=== PATIENT | female | born 1990 | race Caucasian/White ===

== ENCOUNTER 2017-07-19 21:10 | Emergency (ER) | payer SELFPAY ==
[~2017-07-19] VITALS: Ht 167.6 cm; Wt 45.5 kg
[~2017-07-19 21:10] MED LIST: METO5SOL2 PO
[2017-07-19 21:11] VITALS: BP 140/67; PULSE 104; RESP 16; TEMP 99.7; O2SAT 99
[2017-07-19 22:17] LABS: AMORPHOUS SEDIMENT, URINE RARE; BACTERIA, URINE FEW /hpf; BILIRUBIN, URINE NEG (NEG); BLOOD, URINE MOD (NEG); GLUCOSE,URINE NEG (NEG); KETONE, URINE NEG (NEG); NITRITE,URINE NEG (NEG); SQUAMOUS EPITHELIAL CELL URINE 2 /hpf (0-5); URINE COLOR YELLOW (YELLW/STRAW); URINE LEUKOCYTE ESTERASE SMALL (NEG)
[2017-07-19 22:21] LABS: AUTOMATED NEUTROPHIL # 6.1 TH/MM3 (1.8-7.7); BASOPHIL # 0.1 TH/MM3 (0-0.2); BASOPHIL % 0.6 % (0.0-2.0); EOSINOPHIL # 0.1 TH/MM3 (0-0.4); EOSINOPHIL % 1.3 % (0.0-4.0); HEMATOCRIT 36.7 % (35.0-46.0); HEMOGLOBIN 12.6 GM/DL (11.6-15.3); LYMPH % 29.9 % (9.0-44.0); LYMPHOCYTE # 3.2 TH/MM3 (1.0-4.8); MEAN CELL VOLUME 96.8 FL (80.0-100.0); MEAN CORPUSCULAR HEMOGLOBIN 33.3 PG (27.0-34.0); MEAN CORPUSCULAR HGB CONC 34.4 % (32.0-36.0); MEAN PLATELET VOLUME 7.9 FL (7.0-11.0); MONO % 10.7 % (0.0-8.0); MONOCYTE # 1.1 TH/MM3 (0-0.9); NEUT % 57.5 % (16.0-70.0); PLATELET COUNT 258 TH/MM3 (150-450); RED CELL DISTRIBUTION WIDTH 12.8 % (11.6-17.2); WHITE BLOOD COUNT 10.6 TH/MM3 (4.0-11.0)
[2017-07-19 22:40] LABS: BICARBONATE 26.9 MEQ/L (21.0-32.0); CALCIUM 8.6 MG/DL (8.5-10.1); CREATININE 1.09 MG/DL (0.50-1.00)
--- NOTE | 2017-07-19 23:38 | PD ---
HPI Chief Complaint: Related Problem Time Seen by Provider: 22:31 Travel History International Travel<30 days: No Contact w/Intl Traveler<30days: No Traveled to known affect area: No History of Present Illness HPI 27-year-old female here for evaluation of positive home test, vaginal bleeding, pelvic cramping. The patient reports that since 06/27/17 she has been having vaginal bleeding with intermittent cramping. She had a positive home test last week. She reports that her last menstrual period was May 23, believes that she may become before then. She has been one other time in 2014 and had a spontaneous at that time. She is sexually active with one partner whom she has been with for the last 7 years and is her fianc. She denies any other abnormal vaginal discharge other than bleeding. She has not noted any large clots and the blood and goes through about 3-4 pantyliners daily. She believes that she was treated for Chlamydia in the past. No significant abdominal surgeries. Currently she is pain-free, however she states that occasionally she has a pain that goes to her left shoulder. PFSH Past Medical History Gastrointestinal Disorders: Yes (CELIAC DISEASE) ?: LMP: 05/23/2017 Social History Alcohol Use: Yes (SOCIALLY) Tobacco Use: Yes (SOCIALLY) Substance Use: No Allergies-Medications (Allergen,Severity, Reaction): Coded Allergies: Pertussis Vaccines (Unverified Allergy, Unknown, 07/19/17) Sulfa (Sulfonamide Antibiotics) (Unverified Allergy, Unknown, 07/19/17) Reported Meds & Prescriptions Reported Meds & Active Scripts Active Keflex (Cephalexin) 500 Mg Cap 500 Mg PO Q12H 7 Days Reglan (Metoclopramide HCl) 10 Mg/10 Ml Syrp 5 Mg PO Q6 PRN Review of Systems Except as stated in HPI: all other systems reviewed are Neg Physical Exam Narrative GENERAL: Well-developed, well-nourished, comfortable, no apparent distress. SKIN: Focused skin assessment warm/dry. HEAD: Atraumatic. Normocephalic. EYES: Pupils equal and round. No scleral icterus. No injection or drainage. ENT: No nasal bleeding or discharge. Mucous membranes pink and moist. NECK: Trachea midline. No JVD. CARDIOVASCULAR: Regular rate and rhythm. RESPIRATORY: No accessory muscle use. Clear to auscultation. Breath sounds equal bilaterally. GASTROINTESTINAL: Abdomen soft, non-tender, nondistended. SHERIFF DETECTIVE: Exam performed in the presence of female nurse. Normal external genitalia. Scant blood in vaginal vault coming from cervical os which is closed. No abnormal masses. Cervix is normal-appearing. No vaginal lacerations. MUSCULOSKELETAL: No obvious deformities. No clubbing. No cyanosis. No edema. NEUROLOGICAL: Awake and alert. No obvious cranial nerve deficits. Motor grossly within normal limits. Normal speech. PSYCHIATRIC: Appropriate mood and affect; insight and judgment normal. Data Data Last Documented VS Vital Signs Date Time Temp Pulse Resp B/P (MAP) Pulse Ox O2 Delivery O2 Flow Rate FiO2 07/19/17 21:11 99.7 104 16 140/67 (91) 99 Room Air Orders Orders Beta Hcg (Quant/Titer) (07/19/17 21:18) Complete Blood Count With Diff (07/19/17 21:18) Basic Metabolic Panel (Bmp) (07/19/17 21:18) Complete Rh (07/19/17 21:18) Urinalysis - C+S If Indicated (07/19/17 21:18) Ed Urine Pregnancytest Poc (07/19/17 21:18) Urine Culture (07/19/17 19:35) Influenzae A/B Antigen (07/19/17 23:01) Gc And Chlamydia Pcr (07/19/17 23:01) Wet Prep Profile (07/19/17 23:01) Ceftriaxone Inj (Rocephin Inj) (07/20/17 00:30) Cefuroxime (Ceftin) (07/20/17 00:30) Acetaminophen (Tylenol) (07/20/17 00:30) Us Pelvis (Ques Pr/Ect)W Trans (07/20/17 ) Labs Laboratory Tests Test 07/19/17 19:35 07/19/17 21:35 07/19/17 23:15 Urine Color YELLOW Urine Turbidity CLEAR Urine pH 6.0 Urine Specific [place] 1.016 Urine Protein TRACE mg/dL Urine Glucose (UA) NEG mg/dL Urine Ketones NEG mg/dL Urine Occult Blood MOD Urine Nitrite NEG Urine Bilirubin NEG Urine Urobilinogen LESS THAN 2.0 MG/DL Urine Leukocyte Esterase SMALL Urine RBC 10 /hpf Urine WBC 12 /hpf Urine Squamous Epithelial Cells 2 /hpf Urine Amorphous Sediment RARE Urine Bacteria FEW /hpf Microscopic Urinalysis Comment CULTURE INDICATED White Blood Count 10.6 TH/MM3 Red Blood Count 3.80 MIL/MM3 Hemoglobin 12.6 GM/DL Hematocrit 36.7 % Mean Corpuscular Volume 96.8 FL Mean Corpuscular Hemoglobin 33.3 PG Mean Corpuscular Hemoglobin Concent 34.4 % Red Cell Distribution Width 12.8 % Platelet Count 258 TH/MM3 Mean Platelet Volume 7.9 FL Neutrophils (%) (Auto) 57.5 % Lymphocytes (%) (Auto) 29.9 % Monocytes (%) (Auto) 10.7 % Eosinophils (%) (Auto) 1.3 % Basophils (%) (Auto) 0.6 % Neutrophils # (Auto) 6.1 TH/MM3 Lymphocytes # (Auto) 3.2 TH/MM3 Monocytes # (Auto) 1.1 TH/MM3 Eosinophils # (Auto) 0.1 TH/MM3 Basophils # (Auto) 0.1 TH/MM3 CBC Comment DIFF FINAL Differential Comment Blood Urea Nitrogen 13 MG/DL Creatinine 1.09 MG/DL Random Glucose 95 MG/DL Calcium Level 8.6 MG/DL Sodium Level 136 MEQ/L Potassium Level 3.6 MEQ/L Chloride Level 103 MEQ/L Carbon Dioxide Level 26.9 MEQ/L Anion Gap 6 MEQ/L Estimat Glomerular Filtration Rate 60 ML/MIN Human Chorionic Gonadotropin, Quant 203 MIU/ML Clue Cells (Wet Prep) NONE SEEN Vaginal Trichomonas (Wet Prep) NONE SEEN Vaginal Yeast (Wet Prep) NONE SEEN Chlamydia trachomatis DNA (PCR) NOT DETECTED Neisseria gonorrhoeae DNA (PCR) NOT DETECTED MDM Medical Decision Making Medical Screen Exam Complete: Yes Emergency Medical Condition: Yes Differential Diagnosis First trimester bleeding, spontaneous , ectopic , threatened , inevitable , missed with retained products of conception Narrative Course Initial vital signs show heart rate 104, blood pressure 140/67, pulse ox 99% on room air, oral temp of 99.7F. ABC: WBC 10.6, hemoglobin 12.6, hematocrit 36.7, platelets 258. BMP is essentially unremarkable. Beta hCG is 203. UA shows moderate occult blood, small leukocyte esterase, 10 RBCs, 12 WBCs, few bacteria. Wet prep is negative for use, negative for clue cells, negative for Trichomonas. Influenza is negative. Blood type is A+. Pelvic ultrasound: CONCLUSION: 1. No endometrial gestational sac demonstrated. 2. 3.2 cm bilobed cyst in the right ovary without significant increased vascularity. 3. Otherwise, no adnexal mass or significant free fluid. Patient's oral temp is 99.7F. There are no peritoneal signs or abdominal exam. I did not believe that there is an acute intra-abdominal process such as appendicitis. She was given Ceftin for her UA findings. Case discussed with on-call OB hospitalist. This is less likely an ectopic , and more likely a spontaneous . There are no products in her uterus, and I do not believe that this is a septic . Patient was made aware of all findings and provided a copy of her ultrasound report. She is resting comfortably. Again there are no peritoneal signs on exam. Plan is to discharge her home with a prescription for Keflex and have her return to the emergency department in 48-72 hours for repeat beta hCG. Patient advised on when to return to the emergency Department sooner. She verbalizes understanding and agreement with plan. Diagnosis Primary Impression: First trimester bleeding Additional Impressions: UTI (urinary tract infection) Qualified Codes: N39.0 - Urinary tract infection, site not specified; R31.9 - Hematuria, unspecified Ovarian cyst Qualified Codes: N83.201 - Unspecified ovarian cyst, right side Referrals: [facility] 3 days Additional Instructions: Follow-up with an [employer] physician or return to the emergency department in 48- 72 hours for repeat beta hCG. Return to the emergency Department sooner for worsening symptoms or any other concerns as discussed. Scripts Cephalexin (Keflex) 500 Mg Cap 500 MG PO Q12H for Infection for 7 Days, #14 CAP 0 Refills Prov: Martell Basilio MD 07/20/17 Disposition: 01 DISCHARGE HOME Condition: Stable Martell Basilio MD Jul 19, 2017 23:38
[2017-07-20] VITALS: BP 127/71; PULSE 88; RESP 18; O2SAT 100
[2017-07-20] MEDS ORDERED: ACETAMINOPHEN 325 MG TAB PO ONE (00:30)
[2017-07-20] MEDS ORDERED: CEFUROXIME AXETIL 500 MG TAB PO ONE (00:30)
[2017-07-20] MEDS ORDERED: cefTRIAXone INJ 1,000 MG in SODIUM CHLORIDE 0.9% INJ 100 ML IV ONE (00:30)
--- NOTE | 2017-07-20 01:13 | RADRPT ---
EXAM DATE/TIME: 07/20/2017 00:25 [place] COMPARISON: No previous studies available for comparison. INDICATIONS : Bleeding/pelvic pain. LAB(S): Beta-hC MEDICAL HISTORY : Celiac disease. SURGICAL HISTORY : None. ENCOUNTER: Initial ACUITY: 1 week PAIN SCORE: 1/10 LOCATION: Bilateral pelvis MEASUREMENTS: UTERUS: 7.5 x 4.0 x 3.6 cm ENDOMETRIAL STRIPE: 6 mm RIGHT OVARY: 3.9 x 2.4 x 3.0 cm LEFT OVARY: 3.3 x 2.0 x 2.1 cm FREE FLUID: No FINDINGS: UTERUS: The myometrium has homogeneous echotexture without mass. No endometrial gestational sac is demonstra tyler. RIGHT OVARY: Ovary contains no mass or significant cystic lesion. Small somewhat bilobed anechoic cystic lesion i n the mid right ovary measuring 3.2 x 1.8 x 2.1 cm. This does not demonstrate increased vascularity LEFT OVARY: Ovary contains no mass or significant cystic lesion. MISCELLANEOUS: No free fluid. CONCLUSION: 1. No endometrial gestational sac demonstrated. 2. 3.2 cm bilobed cyst in the right ovary without significant increased vascularity. 3. Otherwise, no adnexal mass or significant free fluid. Terell Nathan MD on July 20, 2017 at 1:08 Board Certified Radiologist. This report was verified electronically.
[2017-07-20] MEDS ORDERED: CEPH-460 PO (01:35)
== END 2017-07-20 01:50 | disposition home or self-care (01) ==
LOC: NEPD 21:10
DX: O20.9 Hemorrhage in early pregnancy, unspecified (principal); O23.40 Unspecified infection of urinary tract in pregnancy, unspecified trimester; B96.20 Unspecified Escherichia coli [E. coli] as the cause of diseases classified elsewhere; O34.80 Maternal care for other abnormalities of pelvic organs, unspecified trimester; N83.201 Unspecified ovarian cyst, right side; Z3A.00 Weeks of gestation of pregnancy not specified
CPT/HCPCS: 76700; 76817; 80048; 81001; 84702; 84703; 85025; 86901; 87077; 87086; 87186; 87210; 87491; 87591; 87804; 99285